=== PATIENT | female | born 1990 | race Caucasian/White ===

== ENCOUNTER 2020-07-25 11:37 | Emergency (ER) | payer OTHER ==
--- NOTE | 2020-07-25 13:11 | ED Physician Documentation ---
History of Present Illness - Stated complaint Stated Complaint: HEAD LUMP - Chief complaint Chief Complaint: Heent - History obtained from History obtained from: Patient - History of Present Illness Timing: How many days ago (3) - Additonal information Additional information: 29-year-old female has discovered a small lump on the back of her head and she discovered this about 4 days ago she states that there is some dull ache to this not specifically pain and she has not noticed this previously she is concerned about this lump and when she talk to her mother about it her mother told her that her grandmother had complained of a lump in her head and then of cancer. She of esophageal cancer. Review of Systems Constitutional: denies: Fever Eyes: denies: Decreased vision Ears: denies: Ear pain Nose: denies: Congestion Throat: denies: Sore throat Respiratory: denies: Dyspnea, Cough GI: denies: Abdominal Pain, Nausea, Vomiting : denies: Dysuria, Frequency Skin: reports: Other (lump). denies: Rash Musculoskeletal: denies: Neck pain, Back pain, Extremity pain Neurologic: denies: Generalized weakness, Focal weakness, Numbness Psychiatric: denies: Depressed, Suicidal PD PAST MEDICAL HISTORY - Past Medical History Past Medical History: No Neuro: None - Allergies Allergies/Adverse Reactions: Allergies Allergy/AdvReac Type Severity Reaction Status Date / Time No Known Drug Allergies Allergy Verified 07/25/20 12:02 - Social History Does the pt smoke?: No Smoking Status: Never smoker PD ED PE NORMAL - Vitals Vital signs reviewed: Yes (tachy nad hypertensive) - General General: Alert and oriented X 3, Well developed/nourished, Other (apprehensive ) - HEENT HEENT: Atraumatic, PERRL, EOMI, Other (There is a small 5 mm yuridia in the scalp on the right occiput. There is no erythema or fluctuance to the area there is nothing to indicate rupture or infection. This looks like a simple small and beginning sebaceous cyst.) - Neck Neck: Supple, no meningeal sign, No bony TTP - Respiratory Respiratory: No respiratory distress Results - Vitals Vitals: Vital Signs - 24 hr 07/25/20 07/25/20 12:00 13:19 Temperature 36.2 C L 36.5 C Heart Rate 104 H 90 Respiratory 14 16 Rate Blood Pressure 139/63 H 130/80 O2 Saturation 100 100 Oxygen O2 Source Room air PD MEDICAL DECISION MAKING - ED course Complexity details: considered differential, d/w patient ED course: 29-year-old female with a small sebaceous cyst in the scalp is given reassurance and instructed to return should she develop symptoms of rupture or infection to include increased swelling and redness to the surrounding area. She is instructed to seek surgical removal when the yuridia is larger and is bothering her. Departure - Departure Disposition: 01 Home, Self Care Clinical Impression: Yuridia Condition: Stable Instructions: ED Cyst Sebaceous Follow-Up: Deirdre Rangel MD [Primary Care Provider] - Discharge Date/Time: 07/25/20 13:19
[2020-07-25 13:20] VITALS: BP 130/80
== END 2020-07-25 13:19 | disposition home or self-care (01) ==
LOC: ED 11:37
DX: L72.3 Sebaceous cyst (principal); Z80.0 Family history of malignant neoplasm of digestive organs
CPT/HCPCS: 99282

== ENCOUNTER 2020-11-23 13:40 | Outpatient (CLI) | payer OTHER ==
[2020-11-23 18:17] LABS: BASOPHILS # (AUTO) 0.1 10^3/uL (0.0-0.1); BASOPHILS % (AUTO) 1.3 %; EOSINOPHILS # (AUTO) 0.1 10^3/uL (0.0-0.7); EOSINOPHILS % (AUTO) 1.6 %; HGB - HEMOGLOBIN 11.8 g/dL (12.0-16.0); LYMPHOCYTES # (AUTO) 1.4 10^3/uL (1.5-3.5); MEAN CORPUSCULAR HEMOGLOBIN 28.4 pg (27.0-31.0); MEAN CORPUSCULAR HGB CONC 31.8 g/dL (32.0-36.0); MEAN CORPUSCULAR VOLUME 89.2 fL (81.0-99.0); MEAN PLATELET VOLUME 11.2 fL (7.9-10.8); MONOCYTES # (AUTO) 0.5 10^3/uL (0.0-1.0); MONOCYTES % (AUTO) 11.9 %; NEUTROPHILS # (AUTO) 1.9 10^3/uL (1.5-6.6); NEUTROPHILS % (AUTO) 50.2 %; PLT - PLATELET COUNT 276 10^3/uL (130-450); RED BLOOD COUNT 4.16 10^6/uL (4.20-5.40); RED CELL DISTRIBUTION WIDTH 12.5 % (12.0-15.0); WHITE BLOOD COUNT 3.9 x10^3/uL (4.8-10.8)
[2020-11-23 18:25] LABS: ALBUMIN 4.8 g/dL (3.2-5.5); ALBUMIN/GLOBULIN RATIO 1.8 (1.0-2.2); BILIRUBIN,TOTAL 0.9 mg/dL (0.2-1.0); CALCIUM 9.5 mg/dL (8.5-10.3); CREATININE 0.8 mg/dL (0.4-1.0); TOTAL PROTEIN 7.4 g/dL (6.7-8.2)
== END 2020-11-23 23:59 | disposition home or self-care (01) ==
LOC: LAB.WCP 13:40
PROVIDERS: ATTEND Nurse Practitioner Family
DX: M32.9 Systemic lupus erythematosus, unspecified (principal); Z79.899 Other long term (current) drug therapy
CPT/HCPCS: 36415; 80053; 85025

== ENCOUNTER 2021-11-02 08:00 | Outpatient (CLI) | payer OTHER ==
[2021-11-02 18:32] LABS: THYROID STIMULATING HORMONE 4.86 uIU/mL (0.34-5.60)
[2021-11-02 18:34] LABS: FREE T4 (FREE THYROXINE) 0.84 ng/dL (0.58-1.64)
== END 2021-11-02 23:59 | disposition home or self-care (01) ==
LOC: LAB.WCP 08:00
PROVIDERS: ATTEND Nurse Practitioner
DX: R43.8 Other disturbances of smell and taste (principal)
CPT/HCPCS: 36415; 82607; 84439; 84443

== ENCOUNTER 2022-02-11 14:09 | Outpatient (CLI) | payer OTHER ==
--- NOTE | 2022-02-11 19:07 | XRAY Report ---
PROCEDURE: Toe(s) LT INDICATIONS: GREAT TOE PAIN TECHNIQUE: 3 views of the left first toe(s) acquired. COMPARISON: None FINDINGS: Bones: Nondisplaced fracture noted to the base of the distal phalanx. Soft tissues: No suspicious soft tissue densities. First toe soft tissue swelling IMPRESSION: Nondisplaced fracture to the base of the first distal phalanx Reviewed by: James York MD on 02/11/2022 6:06 PM [email or web address] Approved by: James York MD on 02/11/2022 6:06 PM AKDT Station ID: [id number]
== END 2022-02-11 23:59 | disposition home or self-care (01) ==
LOC: DI.N 14:09
PROVIDERS: ATTEND Nurse Practitioner Family
DX: S92.425A Nondisplaced fracture of distal phalanx of left great toe, initial encounter for closed fracture (principal)
CPT/HCPCS: 73660

== ENCOUNTER 2022-02-25 07:40 | Outpatient (CLI) | payer OTHER ==
--- NOTE | 2022-02-25 19:18 | XRAY Report ---
PROCEDURE: Foot 3 View LT INDICATIONS: GREAT TOE FRACTURE TECHNIQUE: 3 views of the foot were acquired. COMPARISON: X-ray left toes 02/11/2022 FINDINGS: Bones: Nondisplaced fracture at the base of the first distal phalanx appearing unchanged compared to prior exam. No intra-articular extension. No suspicious bony lesions. Soft tissues: No tibiotalar joint effusion. Achilles tendon appears normal. IMPRESSION: Stable appearance of nondisplaced fracture at the base of the first distal phalanx. Reviewed by: Anahi Worthy MD on 02/25/2022 7:16 PM PDT Approved by: Anahi Worthy MD on 02/25/2022 7:16 PM PDT Station ID: [id number]
== END 2022-02-25 23:59 | disposition home or self-care (01) ==
LOC: DI.WOS 07:40
PROVIDERS: ATTEND Physician Assistant
DX: S92.415D Nondisplaced fracture of proximal phalanx of left great toe, subsequent encounter for fracture with routine healing (principal)

== ENCOUNTER 2022-03-15 09:00 | Outpatient (CLI) | payer OTHER ==
--- NOTE | 2022-03-15 10:21 | XRAY Report ---
PROCEDURE: Toe(s) LT INDICATIONS: LEFT GREAT TOE FX TECHNIQUE: 3 views of the left first toe(s) acquired. COMPARISON: 02/25/2022 FINDINGS: Bones: Stable appearance and alignment of nondisplaced fracture at the base of the first distal phala nx. No evidence for intraarticular extension. No significant periosteal reaction or callus formation. No suspicious bony lesions. Soft tissues: No suspicious soft tissue densities. IMPRESSION: Stable radiographic appearance and alignment of known nondisplaced fracture involving the base of the left first toe distal phalanx. Reviewed by: Truong Sales MD on 03/15/2022 10:19 AM PDT Approved by: Truong Sales MD on 03/15/2022 10:19 AM PDT Station ID: [id number]
== END 2022-03-15 23:59 | disposition home or self-care (01) ==
LOC: DI.WOS 09:00
PROVIDERS: ATTEND Physician Assistant
DX: S92.425D Nondisplaced fracture of distal phalanx of left great toe, subsequent encounter for fracture with routine healing (principal)

== ENCOUNTER 2022-04-12 06:00 | Outpatient (CLI) | payer OTHER ==
--- NOTE | 2022-04-12 11:15 | XRAY Report ---
PROCEDURE: Toe(s) LT INDICATIONS: LEFT GREAT TOE FX TECHNIQUE: 3 views of the first toe(s) acquired. COMPARISON: 03/15/2022 FINDINGS: Bones: No significant change in fracture involving the proximal aspect of the distal pharynx of the first digit with articular surface extension to the interphalangeal joint of the first digit. No susp icious bony lesions. Soft tissues: No suspicious soft tissue densities. IMPRESSION: No change in first digit fracture. Reviewed by: Isabell Delarosa MD on 04/12/2022 11:14 AM PDT Approved by: Isabell Delarosa MD on 04/12/2022 11:14 AM PDT Station ID: [id number]
== END 2022-04-12 23:59 | disposition home or self-care (01) ==
LOC: DI.WOS 06:00
PROVIDERS: ATTEND Physician Assistant
DX: S92.425D Nondisplaced fracture of distal phalanx of left great toe, subsequent encounter for fracture with routine healing (principal)